=== PATIENT | female | born 1930 | race Caucasian/White ===

== ENCOUNTER 2016-08-21 08:59 | Inpatient (IN) | payer MEDICARE, OTHER, MEDICAID ==
[~2016-08-21] VITALS: Ht 162.6 cm; Wt 105.9 kg
--- NOTE | ~2016-08-21 | ER ---
[facility] 86 Y [address] ROOM: [place] [address] [place]: [facility] [place] DATE: 08/21/2016 ER/Outpatient Report DISCHARGE DATE: FAMILY PHYSICIAN: Tayla Wyatt MD ATTENDING PHYSICIAN: Tayla Wyatt Time of Arrival: 0859 hours. Time of Evaluation: 0859 hours. CHIEF COMPLAINT: Troubles breathing. HISTORY OF PRESENT ILLNESS: The patient is an 86-year-old female who presents to the emergency department today with chief complaint of troubles breathing. The patient reports this started over the past 24 hours, it has progressively worsened. The patient denies any pain. No chest pain. No fevers or chills. Does have a nonproductive cough. No nausea or vomiting. No diarrhea or constipation. The patient was checked on by alf staff and was found to have oxygen saturations 85% and she was started on 2 L nasal cannula by staff. When EMS arrived, the patient was continued to be in the upper 80s on the 2 L when she was bumped up to 5 L and was able to maintain a 92% saturation. PAST MEDICAL HISTORY: Dyslipidemia, hypothyroid, hypertension, degenerative arthritis, obesity, gastroesophageal reflux disease, and urinary tract infections. PAST SURGICAL HISTORY: , cholecystectomy, ankle fusion, shoulder x2, and bilateral knee surgeries. SOCIAL HISTORY: The patient denies any tobacco, alcohol, or illicit drug use. ALLERGIES: TO ASPIRIN AND NEURONTIN. MEDICATIONS: Please see list. PRIMARY CARE DOCTOR: Tayla Wyatt MD. REVIEW OF SYSTEMS: All systems are reviewed by myself and are negative with the exception of PATIENT'S NAME: PANFILO HUSAIN [facility] AGE: 86 Y [address] ROOM: [place] [address] LOCATION: [facility] [place] DATE: 08/21/2016 ER/Outpatient Report DISCHARGE DATE: FAMILY PHYSICIAN: Tayla Wyatt MD ATTENDING PHYSICIAN: Tayla Wyatt those discussed in HPI and past medical history. PHYSICAL EXAMINATION: VITAL SIGNS: Weight 107.8 kg, blood pressure 148/87, pulse 76, respiratory rate 18, temperature 97.5, and oxygen saturation 89% on room air. GENERAL: The patient is an 86-year-old female, appears stated age, obese, in [id number] respiratory distress. HEENT: Normocephalic, atraumatic. Pupils are equal, round, and reactive to light and accommodation. Extraocular motions are intact. Nares are patent bilaterally. Oropharynx is clear. NECK: Supple. There is no nuchal rigidity. CARDIOVASCULAR: Regular rate and rhythm. LUNGS: Diminished diffusely with crackles diffusely. ABDOMEN: Soft, nontender, and nondistended. No rebound, rigidity, or guarding. MUSCULOSKELETAL: The patient does have some chronic contracture of the upper extremities. She is nonambulatory. SKIN: Warm and dry. LABORATORY DATA AND DIAGNOSTIC DATA: Labs and x-rays are obtained. CBC is unremarkable. Lactate is normal. CMP is unremarkable. LFTs are normal. Cardiac enzymes are normal. ProBNP is 723. Procalcitonin is less than 0.05. EKG shows questionable atrial fibrillation with a rate of 76, left-axis deviation, normal interval. No ST elevation or ST depression. There is nonspecific T-wave inversions and flattening. Chest x-ray is obtained, it is interpreted by myself. It does show bibasilar opacity as well as a small volume of pleural fluid in the lower left and right hemithorax. IMPRESSION: 1. Dyspnea, acute respiratory failure, room air hypoxia. 2. Bibasilar opacification with small volume pleural fluid bilaterally. 3. Initial visit. EMERGENCY DEPARTMENT COURSE: The patient was brought back to the examination room. Seen and evaluated by myself. IV is established. Laboratory analysis and imaging are obtained as described above. The patient is given 2 DuoNeb breathing treatments back to back. She is given 60 mg of Lasix IV. I have discussed the results with the patient. She does appear to have some edema on her lungs. This is likely consistent with congestive heart failure and will need further evaluation. I would recommend an admission to the hospital for further evaluation and treatment, as the patient is requiring supplemental oxygen at this time. I have discussed the case with Dr. Paige who does agree to accept the patient for further evaluation, treatment, and management. PATIENT'S NAME: PANFILO HUSAIN [facility] AGE: 86 Y [address] ROOM: [place] [address] LOCATION: [facility] [place]MIT DATE: 08/21/2016 ER/Outpatient Report DISCHARGE DATE: FAMILY PHYSICIAN: Tayla Wyatt MD ATTENDING PHYSICIAN: Tayla Wyatt DISPOSITION: The patient is admitted under the care of Dr. Paige in stable condition. DO MELLY RUTH/sharl /[id number] d: 08/21/162012 t: 08/24/16 0641, OUTPATIENT REPORT
--- NOTE | ~2016-08-21 | CON ---
PATIENT'S NAME: PANFILO HUSAIN [facility] AGE: 86 Y [address] ROOM: [address] [address] LOCATION: [facility] [place] ADMIT DATE: 08/22/2016 Consultation DISCHARGE DATE: FAMILY PHYSICIAN: Tayla Wyatt MD ATTENDING PHYSICIAN: Tayla Wyatt DATE OF CONSULTATION: 08/23/2016 REFERRING PHYSICIAN: Sun Bond MD PATIENT OF: Tayla Wyatt MD Dear Dr. Wyatt: Thank you for asking me to see Ms. Husain, who is an 86-year-old female patient, who has been a detention resident for 4 to 5 years. She has had rheumatoid arthritis for almost 11 years, which apparently is still ongoing. She has mostly been wheelchair-bound and she cannot walk very far and she has had falls and multiple surgery on her knees, which has crippled her according to her. For more than 2 years, she has not done very much in terms of walking. She can barely stand with some help. About seven days ago, she started to notice shortness of breath and some swelling in her ankles along with cough and wheezing, which has improved since she has come in. She has no phlegm, fever, or hemoptysis. She does notice some burning in her chest, which is intermittent. She is currently in functional class 4 with no paroxysmal nocturnal dyspnea or orthopnea. She has not been on oxygen in the detention and has no history of sleep apnea. She denies any chest pain per se. There is no lightheadedness, dizziness, syncope, presyncope, or palpitations. She has had ankle swelling for 5 years. On arrival to the hospital she had a CT chest PE protocol, which revealed no evidence of pulmonary emboli and has no pneumonia. The patient has history of hypertension. She denies diabetes, elevated cholesterol, tobacco abuse or family history of premature coronary artery disease. She denies IL or angina or nitroglycerin use up until now. She has no history of rheumatic fever, heart murmur or heart failure until now. She has no history of atrial fibrillation or any other arrhythmias. HOME MEDICATIONS: Include: 1. Artificial Tears. PATIENT'S NAME: PANFILO HUSAIN [facility] AGE: 86 Y [address] ROOM: [place] [address] LOCATION: [facility] [place] ADMIT DATE: 08/22/2016 Consultation DISCHARGE DATE: FAMILY PHYSICIAN: Tayla Wyatt MD ATTENDING PHYSICIAN: Tayla Wyatt 2. Vasotec 20 mg a day. 3. Fentanyl 75 mcg every three days. 4. Furosemide 40 mg a day. 5. Lexapro 10 mg at bedtime. 6. Metoprolol 50 mg daily. 7. [place] 5/325 one tablet b.i.d. 8. Diclofenac sodium application topically. 9. MiraLAX powder pravastatin 40 mg a day. 10. Levothyroxine 50 mcg tablets one and half a day. 11. Acetaminophen 500 mg p.r.n. at bedtime. 12. Vitamin D3, 1000 units every day. 13. Nystatin application topically. 14. Patanol eye drops. 15. Acetaminophen again p.r.n. 16. Lidocaine application topically four times a day. 17. Diclofenac sodium gel to the eye. 18. Bisacodyl p.r.n. 19. Magnesium hydroxide p.r.n. ALLERGIES: NO KNOWN DRUG ALLERGIES. PAST MEDICAL HISTORY: 1. History of bilateral knee surgeries. 2. C-sections x3. 3. Cataracts x2. 4. Tonsillectomy and adenoidectomy. 5. Cholecystectomy. 6. Appendectomy. 7. Hysterectomy with appendectomy. 8. Multiple shots to the back. 9. Shoulder surgery. 10. Carpal tunnel release. 11. Asthma. 12. History of pre diabetes. 13. Allergies rhinitis. 14. Hypothyroidism. 15. Chronic dry eyes. 16. Constipation. 17. Chronic pain syndrome. 18. Morbid obesity. 19. Diffuse arthritis. 20. Depression. SOCIAL HISTORY: PATIENT'S NAME: PANFILO HUSAIN [facility] AGE: 86 Y [address] ROOM: [place] [address] LOCATION: [facility] [place] ADMIT DATE: 08/22/2016 Consultation DISCHARGE DATE: FAMILY PHYSICIAN: Tayla Wyatt MD ATTENDING PHYSICIAN: Tayla Wyatt The patient is a detention resident. She denies abusing alcohol or any recreational drugs. Her appetite and weight are stable. Sleep is poor. FAMILY HISTORY: No premature coronary artery. REVIEW OF SYSTEMS: A 12-point review of systems revealed the following positives: 1. Headaches. 2. Sinus problems. 3. Corrective lenses. 4. Shots for asthma. PHYSICAL EXAMINATION: GENERAL: The patient is now in no acute distress. Awake, alert, and oriented x3. Appropriate and cooperative. VITAL SIGNS: Blood pressure is 160/80, heart rate is in the 70s and regular respiration is 18, and afebrile. HEENT: Normal. NECK: Supple. No JVD. Thyromegaly, lymphadenopathy or carotid bruit. PMI is not well located. First and second heart sounds are regular. I am unable to hear any murmurs even though her echo shows aortic stenosis. CHEST: Examination is clear. I do not hear any wheezing. ABDOMEN: Obese and soft. EXTREMITIES: Reveal 1+ edema. CENTRAL NERVOUS SYSTEM: Overall intact. ASSESSMENT AND PLAN: This is an 86-year-old female patient with hypertension, prediabetes, and a long-standing history of rheumatoid arthritis, presenting with congestive heart failure. Her echocardiogram done yesterday reveals normal ejection fraction, moderate aortic stenosis, and increased biatrial pressures. She appears to have ruled out for myocardial infarction. As far as troponins are concerned and her EKG essentially reveals regular sinus rhythm, bifascicular block with no acute changes. Her symptoms seemed to have suddenly gotten worse within the last 7 days. The possibilities are that she had acute exacerbation of the asthma that she has had pulmonary emboli, which has been ruled out, or pneumonia, which has not been proven and has no evidence of it. Other possibility is also that the burnings that she has been noticing in the chest may be anginal equivalent. We will recommend a Lexiscan Cardiolite study to evaluate for the presence of significant ischemia. Further management will depend on her initial evaluation. We will also get a nocturnal trend oximetry today. PATIENT'S NAME: PANFILO HUSAIN [facility] AGE: 86 Y [address] ROOM: [id number] [place] [id number] LOCATION: [facility] [place] ADMIT DATE: 08/22/2016 Consultation DISCHARGE DATE: FAMILY PHYSICIAN: Tayla Wyatt MD ATTENDING PHYSICIAN: Tayla Wyatt Again, I appreciate this opportunity to participate in the care of Ms. Husain. MD SERAFIN ANTOINE/sharl /[id number] d: 08/24/16 0020 t: 08/30/16 1215, CONSULTATION REPORT
--- NOTE | ~2016-08-21 | ESTC ---
Cardiac Perfusion Imaging Demographics Patient Name LISHA Mclean Gender Female Patient Number [id number] Race Visit Number [id number] [place] [id number] Room Number G6323 Accession Number [id number] Height 64 inches Date of 1930 Weight 229 pounds MD Edmundo Mendoza MD Interpreting Physician Varun Garsia Date of study 08/24/2016 MD Supervising /TRINO NM Technologist Annia Fabian Ordering Physician Varun Garsia Stress environmental field services technician Stress ECG Reading Varun Garsia Nurse Anthony Castelan Physician Procedure Admit Source:Emergency department. Procedure Type: Nuclear Stress Test:Pharmacological, Lexiscan, Cardiolite Stress Test Procedure Start time: 08/24/2016 00:00 Indications: CHF. Risk Factors The patient risk factors include:obesity, physical activity, hypercholesterolemia, family history of premature CAD, chronic lung disease, last creatinine: 0.8 mg/dl, dyslipidemia, prior heart failure and creatinine clearance: 82.77 ml/min. Conclusions Summary Lexiscan cardiolite with no EKG changes of ischemia. Large inferior ischemia of moderate degree. LVEF:44%. Moderate hypokinesia involving the inferior wall and septum. Stress Protocols Resting ECG RSR. Pre-stress physical exam: Un changed. Predicted HR: 134 bpm ECG Findings No ECG changes suggestive of ischemia. Arrhythmias No rhythm abnormality. Symptoms SOB. Stress Interpretation Lexiscan cardiolite with normal hemodynamic response. SOB. No ischemia. No arrythmias. Imaging Results High risk findings Summed scores - Summed stress score: 33 - Summed rest score: 6 - Summed difference score: 27 Stress ejection Ejection fraction:44 % EDV :79 ml ESV :44 ml Stroke volume :35 ml LV mass :129 gr LV size:Normal LV systolic function impairment: Mild Imaging Protocols Rest Stress Isotope:Tc99m Sestamibi IV Isotope: Tc99m Sestamibi IV Isotope dose:15.1 mCi Isotope dose:43.9 mCi Date:08/24/2016 08:07 Date:08/24/2016 11:08 Technique: SPECT Technique: Gated Supine SPECT Supine IV remains in place after procedure. Scan Time:45-60 minutes post Scan Time:45-60 minutes post injection injection Procedure Medications - Regadenoson (Lexiscan) 0.4 mg IV over 10-15 sec. I.V. 0.4 mg. Medical History Other Previous Procedures + + +-------+ !Test name !Date !Remarks! + + +-------+ !Stress testing with SPECT MPI !08/24/2016! ! + + +-------+ Admission Medications + +------+ + +---------+ + !Name !Dosage!Times per day !Start date!Stop date!Details ! + +------+ + +---------+ + !ZOE Inhibitor (any) ! ! ! ! ! ! + +------+ + +---------+ + !Beta Gerardo (any) ! ! ! ! ! ! + +------+ + +---------+ + !Statin (any) ! ! ! ! ! ! + +------+ + +---------+ + Admission Data Admission date: 08/22/2016 Admission Time: 07:50 Hospital Status: Inpatient. Signatures dtt: Sun Bond dtd: 08/24/16 0000 Physician Self Edit
--- NOTE | ~2016-08-21 | ECHO ---
Transthoracic Echocardiography Report (TTE) Demographics Patient Name PANFILO HUSAIN Date of Study 08/22/2016 Patient Number [id number] Visit Number [id number] Date of 1930 Room Number G3210 Gender Female Number Age 86 year(s) Referring Royal Howe MD Cartridge Loading Operator Ludy Mejia, Physician RT,RVT,RDCS Physician Interpreting Timmy Alvarez MD Field Marketing Representative Physician Supervising Ordering Royal Howe MD, MD/MLP Physician Nurse Stress Smoke Inspector Conclusions Summary The estimated left ventricular ejection fraction is 65%. There is mild aortic regurgitation by color Doppler. There is moderate aortic stenosis by the Continuity Equation. The peak velocity is 2.5 m/s, the mean gradient is 15 mmHg, and the valve area based on the continuity equation is 0.98 cm2, stroke volume index is 57 ml/m2. Procedure Type of Study TTE procedure:2D Echocardiogram, M-Mode, Doppler , Color Doppler. Procedure Date Date: 08/22/2016 Start: 10:40 AM Study Location: Inpatient Portable Technical Quality: Limited visualization due to body habitus. Indications:Dyspnea/SOB. Appropriate Use Criteria: 9 Patient Status: Routine HR: 68 bpm BP: 140/67 mmHg M-Mode/2D Measurements Cardiac Output: 3.86 l/min LVOT: 2 cm EF Estimated: 65 % LVOT VTI: 18.1 cm LV Stroke volume: 56.83 ml Doppler Measurements AV Peak Velocity: 2.46 m/s MV Peak E-Wave: 0.96 m/s AV Peak Gradient: 24.21 mmHg MV Peak A-Wave: 1.17 m/s AV Mean Gradient: 15 mmHg MV E/A Ratio: 0.82 LVOT Peak Velocity: 0.93 m/s MV P1/2t: 103 msec E' Lateral Velocity: 0.04 m/s A' Lateral Velocity: 0.06 m/s Findings Left Ventricle Normal left ventricle size and function. Diastolic assessment reveals Grade I diastolic dysfunction. Right Ventricle Normal right ventricle structure and function. Left Atrium Normal left atrial size. Right Atrium Normal right atrial size. Mitral Valve Mild mitral annular calcification. Aortic Valve There is mild aortic regurgitation by color Doppler. There is moderate aortic stenosis by the Continuity Equation. The peak velocity is 2.5 m/s, the mean gradient is 15 mmHg, and the valve area based on the continuity equation is 0.98 cm2, stroke volume index is 57 ml/m2. Tricuspid Valve The tricuspid valve is not well visualized. Pulmonic Valve Normal pulmonic valve structure and function. Pericardial Effusion No evidence of pericardial effusion. Miscellaneous Poor visualization. Pleural Effusion No evidence of pleural effusion. Contractility Score LV regional wall motion:(0-Non visualized 1-Normal 2-Hypokinesis 3-Akinesis 4-Dyskinesis 5-Aneurysm) Signature dtt: Antonio Warner (cardio) dtd: 08/22/16 1040 Physician Self Edit
--- NOTE | ~2016-08-21 | DS ---
PATIENT'S NAME: PANFILO HUSAIN [facility] AGE: 86 Y [address] ROOM: [place] [address] [facility] ADMIT DATE: 08/22/2016 Discharge Summary DISCHARGE DATE: [facility] PHYSICIAN: Tayla Wyatt MD ATTENDING PHYSICIAN: Tayla Wyatt CORRECTED WORK TYPE PER OPERATIONS 08/30/16 AO ADDENDUM: The discharge process took 40 minutes. MD DERIAN BEATTY/sharl /[id number] CORRECTED WORK TYPE PER OPERATIONS 08/30/16 AO d: 08/26/16 1129 t: 09/01/16 0957, DISCHARGE SUMMARY
--- NOTE | ~2016-08-21 | CATH ---
Cardiac Diagnostic Report Demographics Patient Name LISHA Mclean Gender Female Date of 1930 Age 86 year(s) Patient Number [id number] Date of Study 08/25/2016 Visit Number [id number] Room Number G6[address] [place] [id number] Ht 162.56 cm Wt 103.87 kg Referring Edmundo Mendoza MD Primary Physician Physician Performing Varun Secondary Physician Physician Sun GRIFFIN Diagnostic Varun Assisting Physician Physician Sun GRIFFIN Interventional Physician Vp Data Physician Findings and Conclusions Diagnostic Findings and Conclusion Normal LVEDP 9 No gradient across the aortic valve. Mild CAD MAC Diagnostic Recommendations Medical therapy. Procedure Description The patient was brought to the diagnostic cardiac catheterization-EP laboratory in the fasting, non-sedated state. Informed consent was obtained in the written and verbal form after the risks and benefits were explained. The patient had no further questions and agreed to proceed. The planned puncture-incision site(s) were shaved and prepped with ChloraPrep and draped in the usual sterile manner. Conscious sedation, supplemental oxygen, and pain control medications were delivered by a registered nurse under physician guidance. Surface ECG rhythm, blood pressure measurement, and pulse oximetry were monitored throughout the procedure. Arterial access. The access site was infiltrated with lidocaine. The vessel was entered with the Seldinger technique. A sheath was advanced into the vessel and used for catheter placement. Selective left coronary angiography. A catheter was advanced into the left coronary vessel ostium under Fluoroscopic guidance. Contrast was injected by hand. Images were obtained in multiple projections. Selective right coronary angiography. A catheter was advanced into the right coronary vessel ostium under fluoroscopic guidance. Contrast was injected by hand. Images were obtained in multiple projections. Left heart catheterization. A catheter was advanced across the aortic valve to the left ventricle under fluoroscopic guidance. Resting hemodynamics were obtained. Arterial artery hemostasis was achieved. The patient was transferred to a regular nursing floor via cart accompanied by a nurse. The patient left the laboratory in stable condition. Diagnostic Cath Status: Urgent Procedure Procedure Type Diagnostic procedure:Angiography:, Coronary Angios w/[facility] Indications: Abnormal stress perfusion study and diastolic heart failure. The procedure was explained in detail to the patient. Risks, complications and alternative treatments were reviewed. Written consent was obtained. Medications Reviewed with Patient prior to Procedure. Angiographic Findings Dominance: Right Cardiac Arteries and Lesion Findings LMCA: Normal (0% Stenosis).Luminal irregularities LAD: Normal (0% Stenosis).LAD Luminal irregularities LCx: Abnormal.There is mild diffuse disease noted. Lesion on Mid CX: 20% stenosis . RCA: Normal (0% Stenosis).Luminal irregularities Coronary Tree Procedure Data Procedure Date Date: 08/25/2016Start: 01:46 PMEnd: 02:47 PM Entry Locations - Retrograde Percutaneous access was performed through the Right Femoral artery (Primary location). A 7 Fr sheath was inserted. Unsuccessful closure attempts were performed using: Angio-Seal STS PLUS (St. Maxx) and a Femstop. Hemostasis was successfully obtained using Manual Compression. Closure Comments: Angioseal unsuccessful. Moncia manual hold. Femstop applied post hold per MD order.. Procedure Medications Order and Administration + + + + + !Time !Medication !Dosage !Route ! + + + + + !08/25/2016 01:41 PM !0.9% NaCl !20 ml/hr !I.V. drip ! + + + + + !08/25/2016 01:44 PM !Fentanyl !25 mcg !I.V. ! + + + + + !08/25/2016 01:44 PM !Versed !1 mg !I.V. ! + + + + + Devices Used - A6 Fr. BS JR 4 Diag. Catheterwas used for:Right coronary angiography. - A6 Fr. BS JL 4 Diag. Catheterwas used for:Left coronary angiography. Contrast Material - Isovue 54322 ml Fluoroscopy Time: Diagnostic: 3:42 minutes. Total: 3:42 minutes. Fluoroscopy Dose: Diagnostic: 866 mGy. Total: 866 mGy. Estimated Blood Loss: 10 ml. Medical History Performed Procedures and Imaging Results - Stress testing with SPECT MPIwas performed on 08/24/2016. Results were: Positive. Risk/Extent of ischemia was: High risk. Allergies - ASA. - Other:(Gabapentin). - Other:(yellow dye). Risk Factors The patient risk factors include:obesity, physical activity, hypercholesterolemia, family history of premature CAD, chronic lung disease, last creatinine: 0.8 mg/dl, creatinine clearance: 82.77 ml/min, dyslipidemia and prior heart failure . Admission Data Admission Date: 08/22/2016 Admission Time: 07:50 AM Admit Source: Emergency department Insurance Payors: Medicare. Admission Medications + +------+------+ + + + + !Medication !Dosage!Times !Last !Last !Administered !Comments ! ! ! !Per !Delivery !Delivery ! ! ! ! ! !Day !Date !Time ! ! ! + +------+------+ + + + + !ZOE ! ! ! ! !Yes ! ! !Inhibitor ! ! ! ! ! ! ! !(any) ! ! ! ! ! ! ! + +------+------+ + + + + !Beta Gerardo! ! ! ! !Yes ! ! !(any) ! ! ! ! ! ! ! + +------+------+ + + + + !Statin (any)! ! ! ! !Yes ! ! + +------+------+ + + + + Clinical Evaluation Leading to Procedure - There were no CAD presentation symptoms. - There were no anginal symptoms. Anti-anginal medications were prescribed during the past two weeks. The medication is: Beta Blockers. - The patient has been in a state of heart failure within the past two weeks. - The patient's heart failure status was assessed as NYHA Class IV, with CHF symptoms of PND. Hemodynamics Condition: Rest O2 Consumption: Estimated: 195.94Heart Rate: 86 bpm Pressures (mmHg) +-----+ + !Site !Pressure ! +-----+ + !LV !134/5 ,9 ! +-----+ + !LV !132/4 ,8 ! +-----+ + !AO !128/69 (96) ! +-----+ + !LV !124/4 ,8 ! +-----+ + Valve Gradients and Areas + +---------+---------+---------+ +---------+ + !Valve !Peak !Mean !Area !Index !Flow !Source ! + +---------+---------+---------+ +---------+ + !Aortic !0 !0 ! ! ! ! ! + +---------+---------+---------+ +---------+ + !Aortic !0 !0 ! ! ! ! ! + +---------+---------+---------+ +---------+ + Shunts Oxygen Values O2 Capacity 191.76 O2 Consumption 195.94 Discharge Data Discharge Date: 08/26/2016 Hospital Status: Inpatient Signatures dtt: Sun Bondd: 08/25/16 1346 Physician Self Edit
--- NOTE | ~2016-08-21 | PUL ---
PATIENT'S NAME: PANFILO HUSAIN [facility] AGE: 86 Y [address] ROOM: [place] [address] [place] [facility] [place]: 08/22/2016 Pulmonary DISCHARGE DATE: FAMILY PHYSICIAN: Tayla Wyatt MD ATTENDING PHYSICIAN: Tayla Wyatt NAME OF PROCEDURE: Overnight Trend Oximetry DATE OF PROCEDURE: August 23 to August 24, 2016 REASON FOR EXAM: Nocturnal hypoxemia RESULTS: Patient underwent overnight trend oximetry. Saturations ranged from 67% to 100%. Pattern of desaturation suggest possibility of sleep apnea. Heart rate ranged from 68 to 123 beats per minute. Saturations were below 88% for 2 hours and 15 minutes. MD CARYN SILVERIO/ /[id number] dtt: 09/13/16 0824 , Scott Alba dtd: 08/25/16 0914
--- NOTE | ~2016-08-21 | DS ---
PATIENT'S NAME: PANFILO HUSAIN [facility] AGE: 86 Y [address] ROOM: [id number] [place], [place] [address] LOCATION: GPCU ADMIT DATE: 08/22/2016 Discharge Summary DISCHARGE DATE: 08/26/2016 FAMILY PHYSICIAN: Tayla Wyatt MD ATTENDING PHYSICIAN: Tayla Wyatt PRINCIPAL DIAGNOSES: 1. Acute diastolic congestive heart failure. 2. Exacerbation of chronic obstructive pulmonary disease. 3. Hypoxia. 4. Trend oximetry very suggestive of obstructive sleep apnea. 5. Morbid obesity. 6. Severe degenerative joint disease. 7. Hypertension. 8. Hypothyroidism. 9. Depression. 10. Allergic conjunctivitis. 11. Constipation. 12. Chronic narcotic use for chronic pain. SUMMARY: Panfilo was admitted with severe dyspnea by Dr. Paige. See his H and P, a very thorough H and P was performed. She was treated with IV Lasix with good results and improvement in her symptoms. Workup was performed including a full laboratory panel, cardiac enzymes, echocardiogram, CT of the chest with PE protocol which was negative. The echocardiogram revealed an EF of 65% with diastolic dysfunction. Diuresed her with Lasix IV, followed her electrolytes closely, did have to replace the potassium. Overnight trend oximetry revealed marked hypoxia and a pattern consistent with obstructive sleep apnea. Her symptoms are better with diuresis and oxygen. She is no longer short of breath. She continues to cough which is occasionally productive of clear phlegm. Dr. Bond was consulted. She underwent a stress test which was positive and after risks and benefits, and much discussion, she did undergo a heart catheterization on 08/25/2016. It was negative for coronary artery disease, so no further intervention. Medical management is the plan at this point. We will have her scheduled for a sleep study as an outpatient and then adjust her medications. A small dose of spironolactone has been added to her medications. She will be on oxygen as well at 2 L/minute to keep her sats greater than 90%. She will be on DuoNeb's 4 times a day. DISMISSAL: Panfilo is dismissed in improved condition on 08/26/2016. She is having bouts of intermittent confusion which has happened off and on throughout the hospital stay. Her diet will be cardiac prudent. Activity, she is a full lift and does get in a wheelchair. She will be on oxygen at 2 L/minute and titrate as needed to keep sats above 90%. We will have PT, OT, and Speech Therapy work with her. Her dismissal medications are as indicated. PATIENT'S NAME: PANFILO HUSAIN [facility] AGE: 86 Y [address] ROOM: [place] [address] LOCATION: [facility]PCU ADMIT DATE: 08/22/2016 Discharge Summary DISCHARGE DATE: 08/26/2016 FAMILY PHYSICIAN: Tayla Wyatt MD ATTENDING PHYSICIAN: Tayla Wyatt They will work with her as indicated. DISMISSAL MEDICATIONS: 1. Tylenol 1000 mg at h.s. and 650 mg twice daily and q.4 hours p.r.n. pain. 2. Tomales 5/325, one tablet b.i.d. routinely and q.4 hours p.r.n. pain. 3. Voltaren 1% gel twice daily to her shoulder and every 6 hours as needed beyond that. 4. Vasotec 20 mg daily for hypertension. 5. Lexapro 10 mg at h.s. for depression. 6. Fentanyl 75 mcg every 72 hours for pain. 7. Lasix 40 mg every morning for failure. 8. Patanol 0.1% drops, 1 drop both eyes for allergic conjunctivitis. 9. Levothyroxine 75 mcg daily for hypothyroidism. 10. Lidocaine ointment topically q.i.d. for back and hip pain. 11. Metoprolol succinate 50 mg every day. 12. Nystatin topical powder twice a day to delmy-area and folds. 13. MiraLAX 17 g daily for constipation. 14. Pravastatin 40 mg at q.h.s. for hyperlipidemia. 15. Aldactone 25 mg daily for CHF. 16. Dulcolax 10 mg daily as needed for constipation. 17. Milk of magnesia 30 mL daily p.r.n. constipation. 18. Artificial tears, 1 to 2 drops in each eye every 6 hours as needed. 19. Vitamin D3 1000 international units daily for osteoporosis. 20. She will also be on prednisone 20 mg b.i.d. for 5 days for exacerbation of COPD and the DuoNeb q.i.d. FOLLOWUP: I will plan to see her in 1 week for followup, sooner if problems and they are to get a sleep study as an outpatient with titration of CPAP. We will also get a basic metabolic panel on 08/29/2016 and have them called that to me since I have added in spironolactone. Prognosis is fair. She remains do not resuscitate, do not intubate. Family has been involved in care and are agreeable to the plan. MD DERIAN BEATTY/gabrielle /[id number] d: 08/26/1656 t: 09/01/16 0954, DISCHARGE SUMMARY
--- NOTE | ~2016-08-21 | HP ---
PATIENT'S NAME: PANFILO HUSAIN [facility] AGE: 86 Y [address] ROOM: [address] [place] [address] [place] [facility] [place] DATE: 08/21/2016 History & Physical DISCHARGE DATE: FAMILY PHYSICIAN: Tayla Wyatt MD ATTENDING PHYSICIAN: Tayla Wyatt DATE OF SERVICE: CHIEF COMPLAINT: "I am short of breath." HISTORY OF PRESENT ILLNESS: Ms. Husain is an 86-year-old morbidly obese female with past medical history significant for chronic osteoarthritis pain, constipation, mood disorder, chronic dry eyes, hypertension, hypothyroidism, hyperlipidemia among several others, who presents as admission to the [facility] from the [facility] for shortness of breath. The patient was in her usual state of health when she began experiencing cough, what she says has been 2 weeks. Her son is present in room and says that it has been only about 2 days. The patient became more short of breath and was coughing to the point where she would vomit. She was struggling to breathe and was having saturations in the mid 80s, on oxygen while at the [facility]. Because of respiratory distress, the patient was transferred to the emergency department for further evaluation and management. Upon reaching the emergency department, the patient had a blood pressure of 148/87, pulse 76, respirations 18, temperature 97.5, and oxygen saturation was 89% on room air. The patient had a number of tests done including a chest x- ray, which showed bibasilar opacity, which could reflect atelectasis and infiltrate as well as small volume pleural fluid in the left lower and right hemithorax. The patient had normal procalcitonin and elevated D-dimer. CMS overall showed glucose 111, albumin 3.3 as well as a cardiac panel which was normal, ProBNP was elevated at 723. Complete blood count overall showed a hematocrit of 46.4, MCV of 99.1, as well as platelets of 136, otherwise unremarkable. Lactate was 1.5. The patient was given Lasix as well as nebulizers while in the emergency department and had some improvement in her shortness of breath. She was then transferred to the floor for further evaluation and management. The patient told me on the floor that she is feeling better. She is still short of breath, but she was not nearly short of breath, she was previously. Reports no chest pain. No nausea or vomiting. No change in her stools. She continues to have back and multiple joint pains. Mood has been okay. Denies really any other symptoms. REVIEW OF SYSTEMS: Negative except for those noted in the HPI. PATIENT'S NAME: PANFILO HUSAIN [facility] AGE: 86 Y [address] ROOM: [address] [address] [place] [facility] [place]: 08/21/2016 History & Physical DISCHARGE DATE: FAMILY PHYSICIAN: Tayla Wyatt MD ATTENDING PHYSICIAN: Tayla Wyatt MEDICATION LIST: Please see nursing notes. ALLERGIES: ASPIRIN AND GABAPENTIN. PAST MEDICAL HISTORY: 1. Depression. 2. Hypertension. 3. Hyperlipidemia. 4. Diffuse osteoarthritis. 5. Morbid obesity. 6. Chronic pain secondary to osteoarthritis, on chronic narcotics. 7. Constipation secondary to chronic narcotics. 8. Chronic dry eyes. 9. Hypothyroidism. 10. Allergic rhinitis. 11. History of prediabetes. 12. Asthma. PAST SURGICAL HISTORY: 1. Ankle surgery in 1988. 2. section in 1950, 1952, and 1959. 3. Carpal tunnel release in 2002. 4. Cataract surgery in 1999 and 2000. 5. Cholecystectomy in 1981. 6. Hysterectomy in 1961. 7. Total knee arthroplasty on the left in 2000 and on the right in 2003. 8. Shoulder surgery in 2005, right shoulder. 9. Tonsillectomy. 10. Left breast cyst biopsy. SOCIAL HISTORY: The patient is a current resident of [place]. She denies having ever smoked. Does not drink alcohol or use other drugs. She is quite sedentary. She is retired. She has 3 children, one of whom from cancer at age 52. She otherwise has a son, who is present today and a daughter. FAMILY MEDICAL HISTORY: 1. Parents both . Father aged 87, complications from heart failure. 2. Mother had liver failure and stroke, at age 84. 3. She had a brother, who from lung cancer at age 75, who also had rheumatoid arthritis. PATIENT'S NAME: PANFILO HUSAIN [facility] AGE: 86 Y [address] ROOM: [address] [place], [place] [address] [place] [facility] [place] DATE: 08/21/2016 History & Physical DISCHARGE DATE: FAMILY PHYSICIAN: Tayla Wyatt MD ATTENDING PHYSICIAN: Tayla Wyatt 4. Mother also had hypertension and diabetes. 5. She has a daughter with depression. PHYSICAL EXAMINATION: VITAL SIGNS: Blood pressure is 190/88, pulse 107, respirations 22, and temperature 99.3. GENERAL: Morbidly obese, elderly female, in no acute distress. HEAD: Normocephalic and atraumatic. EYES: Conjunctivae clear. Sclerae white. ENT: Mucous membranes are moist. Nasal cannula is in place. NECK: Supple. Trachea is midline. HEART: Regular rate and rhythm without murmurs, rubs, clicks, or gallops. LUNGS: Distant breath sounds and wheezing present throughout. Possible faint rales in the bilateral bases. Otherwise unremarkable. ABDOMEN: Obese, soft, nontender, and nondistended. EXTREMITIES: Warm and well perfused. No clubbing, cyanosis, or edema. MUSCULOSKELETAL: The patient has a significant degenerative arthropathy present at the [facility] and the MCP joints in bilateral upper extremities. SKIN: No rashes. Fentanyl patches present on the back. LABORATORY DATA AND X-RAYS: As per HPI. IMPRESSION/REPORT/PLAN: This is an 86-year-old female with; 1. Dyspnea. 2. Elevated ProBNP. 3. Bibasilar atelectasis versus consolidation. At this point in time, the patient still has a pretty broad differential diagnosis for her dyspnea. Cannot completely exclude infectious cause. Procalcitonin was normal as was her white cell count, there was no shift. Much more likely, this is a congestive heart failure exacerbation versus asthma exacerbation. We will continue with DuoNeb q.4 hours while awake. The patient has been diuresed in the emergency department. Additionally, she does have an elevated D-dimer, for which I have ordered a CT/PE protocol of the chest. This would better help delineate her issues as well. Additionally, I have ordered a TTE for the morning as well as repeat of the patient's BNP. We will also get a procalcitonin and CRP help sort out whether this is infectious or not. I have held off on antibiotics and steroids at this time. I have more aggressively diuresed the patient in the morning because contrast load from the CT/PE protocol this evening. 4. Hypertension, essential, stage II, uncontrolled. We will get the patient under better control this evening. Likely did not get any of her home medications this morning and so will be sure to get her evening medications and recheck. PATIENT'S NAME: PANFILO HUSAIN [facility] AGE: 86 Y [address] ROOM: [place] [address] [place] [facility] [place] DATE: 08/21/2016 History & Physical DISCHARGE DATE: FAMILY PHYSICIAN: Tayla Wyatt MD ATTENDING PHYSICIAN: Tayla Wyatt 5. Hypothyroidism. Will need to get a TSH in the morning to see if that is an issue. 6. Hyperlipidemia. Continue pravastatin. 7. Primary osteoarthritis of multiple joints. Continue with the patient's home diclofenac as well as fentanyl patch; hydrocodone; Tylenol, not to exceed 3000 mg per day. We will see if we can get her up with physical and occupational therapy as well. 8. Constipation secondary to narcotic use. Continue with the patient's current bowel regimen. 9. Chronic dry eye. Continue with the patient's home regimen. 10. Morbid obesity. Continue to manage the patient with activity and dietary changes. 11. History of prediabetes. We will get an A1c to further delineate and may need a sliding scale insulin and glucose checks. We will see what that looks like in the morning as well. 12. Fluids: None. 13. Electrolytes: Stable. Continue to monitor. 14. Nutrition: General diet. 15. Code status. Do not resuscitate/do not intubate per my discussion with the patient and her family today. DISPOSITION: She is a patient of Dr. Wyatt. It is my understanding that she is in the clinic tomorrow and I have appropriately handed off the patient. Should Dr. Wyatt be unavailable, I will assume the care of the patient until her discharge or Dr. Wyatt's return, whichever comes first. ANA LUISA SON MD BAB/modl /[id number] D: [id number] T: [id number] HISTORY & PHYSICAL
[2016-08-21 09:28] LABS: BASOPHIL # 0.1 K/uL (0.0-0.2); BASOPHIL % 0.6 %; EOSINOPHIL # 0.3 K/uL (0.0-0.5); EOSINOPHIL % 4.2 %; HEMATOCRIT 46.4 % (30.0-46.0); HEMOGLOBIN 14.7 g/dL (10.0-15.0); IMMATURE GRANULOCYTE % 0.4 %; LYMPHOCYTE # 2.9 K/uL (0.8-4.0); LYMPHOCYTE % 37.3 %; MCH 31.4 pg (27.0-34.0); MCHC 31.7 gm/dL (32.0-36.5); MCV 99.1 fl (83.0-98.0); MONOCYTE # 0.8 K/uL (0.0-1.0); MONOCYTE % 10.2 %; MPV 9.9 fl (9.4-12.4); NEUTROPHIL # (ANC) 3.7 K/uL (1.8-7.8); NEUTROPHIL % 47.3 %; NRBC % 0 /100WBC (0-0.00); PLATELET COUNT 136 K/uL (150-450); RBC 4.68 M/uL (3.00-5.00); RDW-CV 13.2 % (11.9-14.6); WBC 7.9 K/uL (4.0-11.0)
[2016-08-21 09:39] LABS: INR - (THERAPEUTIC) 0.97 (0.92-1.07); PROTIME 10.2 SECONDS (9.8-11.4); PTT 28 SECONDS (25-32)
[2016-08-21 09:50] LABS: ALBUMIN 3.3 gm/dL (3.5-5.0); ALK PHOS 98 IU/L (33-138); ALT 22 IU/L (12-78); ANION GAP 13.2 (10.0-19.0); AST 27 IU/L (10-40); BLOOD UREA NITROGEN 14 mg/dL (6-24); CALCIUM 8.9 mg/dL (8.5-10.5); CHLORIDE 102 mMol/L (96-110); CO2 30 mMol/L (22-32); CPK 52 IU/L (21-215); CREATININE 0.8 mg/dL (0.5-1.1); ESTIMATED GFR (MDRD EQUATION) > 60; POTASSIUM 4.2 mMol/L (3.7-5.1); SODIUM 141 mMol/L (135-145); TOTAL BILIRUBIN 0.4 mg/dL (0.0-1.5); TOTAL PROTEIN 7.6 g/dL (6.0-8.4)
--- NOTE | 2016-08-21 15:50 | NUR ---
A 86 yr old female admitted for dyspnea, acute respiratory failure. Allergies to ASA and Neurontin. Patient has a history of HTN, rhematoid arthritits, GERD, depression. Patient resides at [facility] and can only stand and pivot for transfers. Patient received a nebulizer treatment and Lasix 60 mg in ER
[2016-08-21] MEDS ORDERED: VASOTEC20 MG PO (16:12)
[2016-08-21] MEDS ORDERED: ARTIFICIAL TEAR15 ML OPHTH ×2 (16:12→16:26)
[2016-08-21] MEDS ORDERED: LASIX40 MG PO (16:13)
[2016-08-21] MEDS ORDERED: DURAGESIC 75MC75 MCG TRANS (16:13)
[2016-08-21] MEDS ORDERED: TOPROL XL 5050 MG PO (16:14)
[2016-08-21] MEDS ORDERED: LEXAPRO10 MG PO (16:14)
[2016-08-21] MEDS ORDERED: NORCO 5-325 TA1 EACH PO ×2 (16:16→16:27)
[2016-08-21] MEDS ORDERED: MIRALAX17 GM PO (16:17)
[2016-08-21] MEDS ORDERED: VOLTAREN 1% GE100 GM TOP ×2 (16:17→16:26)
[2016-08-21] MEDS ORDERED: LEVOTHROID (SY50 MCG PO (16:18)
[2016-08-21] MEDS ORDERED: PRAVACHOL40 MG PO (16:18)
[2016-08-21] MEDS ORDERED: TYLENOL EXTRA500 MG PO (16:19)
[2016-08-21] MEDS ORDERED: VITAMIN D1000 UNIT PO (16:20)
[2016-08-21] MEDS ORDERED: NYSTATIN1 EAC1 TOP (16:21)
[2016-08-21] MEDS ORDERED: PATANOL 0.1% DR0.1 % OPHTH (16:22)
[2016-08-21] MEDS ORDERED: TYLENOL325 MG PO ×2 (16:23)
[2016-08-21] MEDS ORDERED: LIDOCAINE35.44 GM TOP (16:25)
[2016-08-21] MEDS ORDERED: MILK OF MA400 MG/5 M PO (16:27)
[2016-08-21] MEDS ORDERED: DULCOLAX10 MG R (16:27)
--- NOTE | 2016-08-21 20:28 | NUR ---
Significant Event: Patient admitted at 1550 from ER per cart. [facility]. Patient was incontinent of urine and had a small BM. Total lift from the commode to the bed. Patient has some redness and a small sore to her abdominal fold, delmy area and groin red and buttocks are purple/red. Denies discomfort. O2 at 2 l/nc with sats at 94%. Patient has a nonproductive cough. Saline lock to her L) inner wrist. Dr Paige here at 1800 to see patient. Follow up:
--- NOTE | 2016-08-22 04:53 | NUR ---
Significant Event: Patient alert and orineted X2. Forgetful of year. Bed alarm on. States she can not walk but can pivot, when day nurse yesterday tried to pivot brandon she said brandon legs were very weak and did not do very well. From [facility]. On 2 liters oxygen. Lasix given in ER. Scheduled breathing treatments. Regular diet. Vitals stable and on room air. Edema noted to legs and arms. Legs elevated. Aloe vesta to buttocks. Nystatin powder to groin and abd folds. Tylenol given X1 for headache. INcont of urine often. New IV started to L) post. arm. Plan is to give lasix today. Follow up: Monitor edema
[2016-08-22 06:05] LABS: BASOPHIL % 0.1 %; HEMATOCRIT 40.9 % (30.0-46.0); HEMOGLOBIN 13.1 g/dL (10.0-15.0); IMMATURE GRANULOCYTE % 0.4 %; LYMPHOCYTE # 1.1 K/uL (0.8-4.0); LYMPHOCYTE % 10.8 %; MCV 96.9 fl (83.0-98.0); MONOCYTE # 0.5 K/uL (0.0-1.0); MPV 9.9 fl (9.4-12.4); NEUTROPHIL # (ANC) 8.4 K/uL (1.8-7.8); NEUTROPHIL % 83.7 %; NRBC % 0 /100WBC (0-0.00); PLATELET COUNT 156 K/uL (150-450); RBC 4.22 M/uL (3.00-5.00); RDW-CV 13.2 % (11.9-14.6)
[2016-08-22 06:23] LABS: ALBUMIN 2.8 gm/dL (3.5-5.0); CALCIUM 8.5 mg/dL (8.5-10.5); CREATININE 0.9 mg/dL (0.5-1.1); TOTAL PROTEIN 6.5 g/dL (6.0-8.4)
[2016-08-22 06:25] LABS: ANION GAP 14.2 (10.0-19.0); POTASSIUM 4.2 mMol/L (3.7-5.1); TOTAL BILIRUBIN 0.3 mg/dL (0.0-1.5)
--- NOTE | 2016-08-22 10:25 | NUR ---
Introduced self/role to patient and her son Ran. Patient is a group home resident at [facility] and plans to return there following this stay. 1040 faxed some updates to [facility] regarding patient.
--- NOTE | 2016-08-22 20:05 | NUR ---
Forgetful. Cooperative with cares. Repositioning Q2hrs and PRN. Tolerating regular diet well. Incontinent of bladder. Redness/excoriation to groin/abdominal/delmy areas. Aloe [place] and powder applied. IV lasix given x1. Topical gels for Rshoulder pain. Scheduled pain med. No PRNs given. On 3Liters O2. Left Hand IV s/l'd.
--- NOTE | 2016-08-23 05:00 | NUR ---
Significant Event: Patient alert and oriented to person and place. Forgetful. SOB with activity. Full lift. Told that she does stand to pivot at times, but has been getting very short of breath. Vitals stable and on 2 liters oxygen. Reposition every 2-3 hours. INcontinent. Daily weight. Became very short of breath around 0430 after a bed change. Called MD air conditioning installer for [facility] and ordered 40mg IV lasix X1 now. Will give before shift change. Son would like to talk to MD today. Follow up: Monitor shortness of breath.
[2016-08-23 06:28] LABS: ANION GAP 11.7 (10.0-19.0); CALCIUM 8.7 mg/dL (8.5-10.5); CREATININE 0.9 mg/dL (0.5-1.1); POTASSIUM 3.7 mMol/L (3.7-5.1)
--- NOTE | 2016-08-23 17:28 | NUR ---
Significant event: This am lung sounds with expiratory wheeze in bases this afternoon lung sounds clear and diminished. Turned q 2hours. Incontinent of urine large amounts 6 times. SOB with turning. Oxygen at 1 liter today, encourage to take deep breaths. Forgetful at times. Pleasant and cooperative with cares.
[2016-08-24 06:34] LABS: ANION GAP 8.8 (10.0-19.0); CALCIUM 8.7 mg/dL (8.5-10.5); CREATININE 0.9 mg/dL (0.5-1.1); POTASSIUM 3.8 mMol/L (3.7-5.1)
--- NOTE | 2016-08-24 07:05 | NUR ---
Significant Event: Patient forgetful. Inconinent several times tonight. Reposition naya 2 hours. Trend ox done last night. Vitals stable. IV to L) forearm. Lasix BID. Coopearive with cares. Planning for mammogram today. Follow up:
--- NOTE | 2016-08-24 11:40 | NUR ---
Faxed some updated to [facility] on patient.
--- NOTE | 2016-08-24 17:35 | NUR ---
Significant Event:Is alert & has been pretty disoriented most of the day.Her daughter says most of the time she is "sharp as a tack & right on".Is a full lift.IV in Lt.forearm.Uses bedpan & has been incont.Had mod.soft brown stool.Had tylenol at 1335 for aching all over.Had stress test today.Also had lexascan.Was to have mammogram.Pleasant.Red in groins & fold of stomach. Follow up:
[2016-08-25 06:23] LABS: BASOPHIL % 0.5 %; EOSINOPHIL # 0.2 K/uL (0.0-0.5); EOSINOPHIL % 2.6 %; HEMATOCRIT 43.3 % (30.0-46.0); HEMOGLOBIN 14.1 g/dL (10.0-15.0); IMMATURE GRANULOCYTE # 0.1 K/uL (0.0-0.3); IMMATURE GRANULOCYTE % 0.6 %; LYMPHOCYTE % 23.2 %; MCH 31.1 pg (27.0-34.0); MCHC 32.6 gm/dL (32.0-36.5); MCV 95.4 fl (83.0-98.0); MONOCYTE # 0.8 K/uL (0.0-1.0); MPV 9.9 fl (9.4-12.4); NEUTROPHIL # (ANC) 5.3 K/uL (1.8-7.8); NEUTROPHIL % 63.1 %; NRBC % 0 /100WBC (0-0.00); PLATELET COUNT 170 K/uL (150-450); RBC 4.54 M/uL (3.00-5.00); RDW-CV 13.1 % (11.9-14.6); WBC 8.4 K/uL (4.0-11.0)
[2016-08-25 06:29] LABS: INR - (THERAPEUTIC) 1.07 (0.92-1.07); PROTIME 11.2 SECONDS (9.8-11.4)
[2016-08-25 06:47] LABS: ANION GAP 14.3 (10.0-19.0); BLOOD UREA NITROGEN 26 mg/dL (6-24); CALCIUM 8.9 mg/dL (8.5-10.5); CHLORIDE 102 mMol/L (96-110); CO2 28 mMol/L (22-32); CREATININE 0.8 mg/dL (0.5-1.1); ESTIMATED GFR (MDRD EQUATION) > 60; POTASSIUM 3.3 mMol/L (3.7-5.1); SODIUM 141 mMol/L (135-145)
--- NOTE | 2016-08-25 07:06 | NUR ---
Significant Event: Pt alert confused on and off. bed alarm on at all times. pills whole. nisatin in folds. ful lift. scheduled lasix. IV left AC. NO BM. Incontinent. norco given before bed. slept part of shift. turned q2hr. encourage PO intake NPO at midnight Follow up:
--- NOTE | 2016-08-25 13:20 | NUR ---
SENT TO [facility]IA BED FOR HEART CATH.LATER WAS CALLED & SAID SHE WAS GOING TO PCU BECAUSE OF SOME GROIN BLEEDING.PHONE REPORT WAS GIVEN TO THELMA SCHULER RN ABOUT PT.& BELONGINGS WERE TAKEN THERE BY TRANSPORT.
--- NOTE | 2016-08-25 16:42 | NUR ---
Significant Event: A/Ox3, forgetful at times. SBP- 120/150s. P-90-110s. Afebrile. 2L NC with saturations in the low to mid 90s. Patiemt transfered to PCU post heart cath. R) groin has fempop placed until 2100. We are to let out pressure 5min ever hour and keep pressure at 60mmHg. No bleeding noted since arrival to PCU. Total lift and turns Q2HR. INC of urine and stool at times. Tylenol given for pain post heart cath last at 1545. Patient has chronic back pain and also recived lidocane cream and scheduled norco. Pleasant and cooperative with cares.
--- NOTE | 2016-08-26 04:57 | NUR ---
Significant Event: Patient has been drowsy but alerts easily to voice. Mostly oriented x3, but can become confused at times. Answers questions appropriately. Femo-stop removed at 2100 last night; no oozing noted afterwards. Groin has remained soft and CSM has been WNL all night. Gauze and tegaderm intact. Patient has been incontinent of bowel and bladder. 4 watery stools last night; Dr. Maya notified and obtained order to test for C. diff, which is negative. Patient is a full lift, repositioned q.2hr. Follow up: Dismiss back to [facility] soon.
[2016-08-26 05:18] LABS: CALCIUM 8.8 mg/dL (8.5-10.5); CREATININE 1.1 mg/dL (0.5-1.1)
[2016-08-26 05:19] LABS: ANION GAP 11.8 (10.0-19.0); POTASSIUM 3.8 mMol/L (3.7-5.1)
--- NOTE | 2016-08-26 10:55 | NUR ---
Received a call from Emely HO this morning stating patient has signed discharge orders on chart. I called and spoke with Jeana at [facility] and set up transportation for 1200. D/C orders faxed to [phone].
--- NOTE | 2016-08-26 11:25 | NUR ---
Discharge Note: A/Ox3, Forgetful at times. VSS on room air. Total lift. Turns Q2HR. R) groin cath site dressed with gauze and tagaderm, clean/dry/intact. Some eccymossis noted to R)labia from femstop. Redness noted to groin/adb folds and buttocks. Incotinent of urine/stool. Patient has been having loose stools, tested for cdiff and was negative. Pleasant and cooperative with cares.
[2016-08-26 12:12] LABS: BILIRUBIN URINE NEGATIVE (NEGATIVE); BLOOD URINE 250 /UL (NEGATIVE); COLOR URINE YELLOW (YELLOW); GLUCOSE URINE 50 mg/dL (NEGATIVE); KETONE URINE NEGATIVE (NEGATIVE); LEUKOCYTES URINE 100 /UL (NEGATIVE); NITRITE URINE NEGATIVE (NEGATIVE); PROTEIN URINE 500 mg/dL (NEGATIVE); SPEC GRAVITY URINE 1.015 (1.003-1.035); TURBIDITY URINE 2+ (CLEAR); UROBILINOGEN URINE NORMAL (NORMAL)
[2016-08-26 12:24] LABS: AMORPHOUS URINE 3+ (NEGATIVE); BACTERIA URINE NEGATIVE (NEGATIVE); MUCUS URINE 1+ (NEGATIVE); RBC URINE 50-100 #/HPF (NEGATIVE); WBC URINE 50-100 #/HPF (NEGATIVE)
== END 2016-08-26 12:30 | DRG 286 ==
LOC: GMED 08:59 → GMSU 15:42 → GPCU 08-25 15:01
PROVIDERS: Emergency Medicine; Family Medicine; Internal Medicine Interventional Cardiology; ADMIT Family Medicine
PROC: 3E0F7GC Introduction of Other Therapeutic Substance into Respiratory Tract, Via Natural or Artificial Opening (ICD-10-PCS; principal; 2016-08-23)
PROC: 3E073KZ Introduction of Other Diagnostic Substance into Coronary Artery, Percutaneous Approach (ICD-10-PCS; 2016-08-24)
PROC: 4A02XM4 Measurement of Cardiac Total Activity, External Approach (ICD-10-PCS; 2016-08-24)
PROC: 4A023N7 Measurement of Cardiac Sampling and Pressure, Left Heart, Percutaneous Approach (ICD-10-PCS; 2016-08-25)
PROC: B2111ZZ Fluoroscopy of Multiple Coronary Arteries using Low Osmolar Contrast (ICD-10-PCS; 2016-08-25)
DX: I11.0 Hypertensive heart disease with heart failure (principal); J96.01 Acute respiratory failure with hypoxia; J44.1 Chronic obstructive pulmonary disease with (acute) exacerbation; Z68.41 Body mass index [BMI] 40.0-44.9, adult; E66.01 Morbid (severe) obesity due to excess calories; J45.901 Unspecified asthma with (acute) exacerbation; I50.31 Acute diastolic (congestive) heart failure; E03.9 Hypothyroidism, unspecified; E78.5 Hyperlipidemia, unspecified; F32.9 Major depressive disorder, single episode, unspecified; G47.33 Obstructive sleep apnea (adult) (pediatric); M19.90 Unspecified osteoarthritis, unspecified site; Z66 Do not resuscitate; Z79.891 Long term (current) use of opiate analgesic; H10.13 Acute atopic conjunctivitis, bilateral
CPT/HCPCS: A9500; C1760; C1769; G0378; J1644; J1940; J2250; J2785; J3010; J7030; Q9967

== ENCOUNTER → 2016-08-21 | Outpatient (CLI) | payer MEDICARE, OTHER, MEDICAID ==
[~2016-08-21] MED LIST: ARTIFICIAL TEAR15 ML OPHTH; DULCOLAX10 MG R; DURAGESIC 75MC75 MCG TRANS; LASIX40 MG PO; LEVOTHROID (SY50 MCG PO; LEXAPRO10 MG PO; LIDOCAINE35.44 GM TOP; MILK OF MA400 MG/5 M PO; MIRALAX17 GM PO; NORCO 5-325 TA1 EACH PO; NYSTATIN1 EAC1 TOP; PATANOL 0.1% DR0.1 % OPHTH; PRAVACHOL40 MG PO; TOPROL XL 5050 MG PO; TYLENOL EXTRA500 MG PO; TYLENOL325 MG PO; VASOTEC20 MG PO; VITAMIN D1000 UNIT PO; VOLTAREN 1% GE100 GM TOP
== END | disposition disaster alternative care site (69) ==
LOC: GAMB 08:35
DX: R06.2 Wheezing (principal); R05 Cough; E10.9 Type 1 diabetes mellitus without complications; E66.9 Obesity, unspecified; Z88.6 Allergy status to analgesic agent; Z88.8 Allergy status to other drugs, medicaments and biological substances
CPT/HCPCS: A0422; A0425; A0427; J2930

== ENCOUNTER → 2016-11-01 | Outpatient (CLI) | payer MEDICARE, OTHER, MEDICAID ==
[2016-11-01 15:26] LABS: BILIRUBIN URINE NEGATIVE (NEGATIVE); BLOOD URINE NEGATIVE /UL (NEGATIVE); COLOR URINE YELLOW (YELLOW); GLUCOSE URINE NEGATIVE (NEGATIVE); KETONE URINE NEGATIVE (NEGATIVE); LEUKOCYTES URINE NEGATIVE /UL (NEGATIVE); NITRITE URINE NEGATIVE (NEGATIVE); PROTEIN URINE NEGATIVE (NEGATIVE); TURBIDITY URINE CLEAR (CLEAR); UROBILINOGEN URINE NORMAL (NORMAL)
== END ==
PROVIDERS: Family Medicine
DX: N39.0 Urinary tract infection, site not specified (principal)